=== PATIENT | female | born 1955 | race Two or more races ===

== ENCOUNTER → 2018-11-17 | Outpatient (CLI) | payer OTHER | END | disposition home or self-care (01) | LOC: RAD 501 13:35 | DX: Z96.641 Presence of right artificial hip joint (principal) ==

== ENCOUNTER → 2018-12-14 | Outpatient (CLI) | payer OTHER | END | disposition home or self-care (01) | LOC: NUCLEAR 13:00 | DX: M81.0 Age-related osteoporosis without current pathological fracture (principal) ==

== ENCOUNTER 2019-05-24 11:39 | Outpatient (CLI) | payer OTHER | END 2019-05-24 11:49 | disposition home or self-care (01) | LOC: RAD 11:39 | DX: Z96.652 Presence of left artificial knee joint (principal) ==

== ENCOUNTER 2019-05-27 15:51 | Outpatient (CLI) | payer OTHER | END 2019-05-27 16:05 | disposition home or self-care (01) | LOC: RAD 15:51 | DX: M19.041 Primary osteoarthritis, right hand (principal) ==

== ENCOUNTER → 2019-05-30 | Outpatient (CLI) | payer OTHER | END | disposition home or self-care (01) | LOC: MAMO-SONO 09:45 | DX: Z12.31 Encounter for screening mammogram for malignant neoplasm of breast (principal); Z87.898 Personal history of other specified conditions; N64.4 Mastodynia ==

== ENCOUNTER → 2024-02-03 08:55 | Outpatient (CLI) | payer OTHER | END | disposition home or self-care (01) | LOC: NUCLEAR 08:55 | PROVIDERS: ATTEND Urology | DX: I65.23 Occlusion and stenosis of bilateral carotid arteries (principal) ==

== ENCOUNTER 2024-02-08 13:46 | Emergency (ER) | payer OTHER ==
[~2024-02-08] VITALS: Ht 162.6 cm; Wt 63.5 kg
[2024-02-08] MEDS ORDERED: VENLAFAXINE HC150 MG PO (14:28)
[2024-02-08] MEDS ORDERED: EZETIMIBE10 MG PO (14:28)
[2024-02-08] MEDS ORDERED: IRBESARTAN150 MG PO (14:28)
[2024-02-08] MEDS ORDERED: METOPROLOL SUCC25 MG PO (14:28)
[2024-02-08] MEDS ORDERED: ATORVASTATIN CA20 MG PO (14:28)
[2024-02-08] MEDS ORDERED: 0.9 % SODIUM CHLORIDE 500 ML IV ONE (15:30)
[2024-02-08 16:04] LABS: HEMATOCRIT 35.7 % (36.0-45.00); HEMOGLOBIN 12.3 g/dL (12.0-15.00); MEAN CELL VOLUME 95.2 fL (80.00-100.00); MEAN CORPUSCULAR HEMOGLOBIN 32.7 pg (27.00-32.0); MEAN CORPUSCULAR HGB CONC 34.4 g/dl (32.0-36.0); PLATELET COUNT 309 K/uL (150-450); RED BLOOD COUNT 3.75 M/uL (4.00-6.00); RED CELL DISTRIBUTION WIDTH 14.4 % (11.5-14.5)
[2024-02-08 16:36] LABS: PH,URINE 5.5 (5.0-8.0); URINE APPEARANCE Clear; URINE BILIRRUBIN Negative (NEGATIVE); URINE BLOOD Negative; URINE COLOR Yellow; URINE GLUCOSE Negative (NEGATIVE); URINE LEUKOCYTE Negative; URINE NITRATE Negative; URINE PROTEIN Negative (NEGATIVE); URINE UROBILINOGEN 0.2 E.U./dl
[2024-02-08 16:40] LABS: URINE BACTERIA 13.8 uL (0.0-1933); URINE EPITHELIAL CELLS 1.5 uL (0.0-38.8); URINE RBC 7.6 uL (0.0-20.8); URINE WBC 2.3 uL (0.0-23.2)
[2024-02-08] MEDS ORDERED: ZITHROMAX500 MG PO (17:34)
== END 2024-02-08 17:52 ==
LOC: ER 13:47
PROVIDERS: Nurse Practitioner Family
DX: R53.81 Other malaise (principal); I10 Essential (primary) hypertension; E78.49 Other hyperlipidemia; D49.512 Neoplasm of unspecified behavior of left kidney; Z20.822 Contact with and (suspected) exposure to COVID-19

== ENCOUNTER 2024-02-23 10:51 | Outpatient (CLI) | payer OTHER ==
[~2024-02-23 10:51] MED LIST: ATORVASTATIN CA20 MG PO; EZETIMIBE10 MG PO; IRBESARTAN150 MG PO; METOPROLOL SUCC25 MG PO; VENLAFAXINE HC150 MG PO; ZITHROMAX500 MG PO
== END 2024-02-23 10:53 | disposition home or self-care (01) ==
LOC: NUCLEAR 10:51
PROVIDERS: ATTEND Urology
DX: N28.89 Other specified disorders of kidney and ureter (principal)

== ENCOUNTER 2024-02-29 07:27 | Outpatient (CLI) | payer OTHER | END 2024-02-29 07:28 | disposition home or self-care (01) | LOC: NUCLEAR 07:27 | PROVIDERS: ATTEND Urology | DX: R07.9 Chest pain, unspecified (principal) ==

== ENCOUNTER 2024-02-29 10:19 | Outpatient (CLI) | payer OTHER | END 2024-02-29 10:29 | disposition home or self-care (01) | LOC: RAD 10:19 | PROVIDERS: ATTEND Urology | DX: N28.89 Other specified disorders of kidney and ureter (principal) ==